=== PATIENT | male | born 1975 | race Hispanic/Latino ===

== ENCOUNTER 2016-12-12 18:13 | Emergency (ER) | payer OTHER ==
[~2016-12-12] VITALS: Ht 182.9 cm; Wt 93.0 kg
[2016-12-12 18:21] VITALS: BP 162/84
--- NOTE | 2016-12-12 18:57 | ED SKIN/ALLERGY COMPLAINT ---
History of Present Illness General Chief Complaint: Skin Rash/ Abcess Stated Complaint: RASH ON FACE SINCE SAT Source: patient Exam Limitations: no limitations Vital Signs & Intake/Output Vital Signs & Intake/Output Vital Signs Date Time Temp Pulse Resp B/P B/P Pulse O2 O2 Flow FiO2 Mean Ox Delivery Rate 12/12 1848 98 Room Air 12/12 1821 97.8 61 16 162/84 97 Room Air Allergies Coded Allergies: No Known Allergies (12/12/16) Reconcile Medications Acyclovir 800 MG TABLET 1 TAB PO 5 TIMES A DAY SHINGLES Mupirocin 2 % OINT...G. 1 ROHAN TOP TID RASH apply to affected area(s) Triage Note: PT STATES HE HAS A RASH ON HIS NOSE AND ON HIS FH. PT WENT TO WALK IN ON FRIDAY THINKING IT WAS POISON KOFI WAS GIVEN PREDNISONE AND PT STATES IT LOOKS LIKE IT GOT WORSE. PT STATES RASH IS ITCHY Triage Nurses Notes Reviewed? yes Onset: Gradual Duration: week(s): (1) Timing: no prior history Severity: moderate Location: face Possible Factors: UNSURE No Modifying Factors: none HPI: Patient is a 41-year-old male with history of chickenpox as a child presenting to the emergency department with chief complaint of rash that started 5-6 days ago on his face. He reports at that rash is itchy and he noticed some drainage from the rash. Denies being outside or exposed to poison kofi. Denies any pain. No visual changes. Saw the walk-in clinic on Friday and they thought it might be the start of poison kofi so they started him on a prednisone taper. No change in symptoms with prednisone over the past 1 week. Denies any fevers or chills nausea or vomiting chest pain or shortness of breath. (JONATHON DESOUZA) Past History Travel History Traveled to [place] past 21 day No Medical History Any Pertinent Medical History? see below for history Surgical History Surgical History: non-contributory Psychosocial History What is your primary language Peruvian Tobacco Use: Never used ETOH Use: occasional use Illicit Drug Use: denies illicit drug use Family History Hx Contributory? No (JONATHON DESOUZA) Review of Systems Review of Systems Constitutional: Reports: no symptoms. Comments Review of systems: See HPI, All other systems negative. Constitutional, no chills fever or weight loss HEENT: No visual changes no sore throat no congestion Cardiovascular: No chest pain ,palpitation Skin, no jaundice Respiratory: No dyspnea cough sputum or hemoptysis GI: No nausea no vomiting : No dysuria No hematuria Muscle skeletal: no back pain, no neck pain, Neurologic: No numbness no confusion Psych: No stress anxiety Immunology: No splenectomy or history of AIDS (JONATHON DESOUZA) Physical Exam Physical Exam General Appearance: well developed/nourished, no apparent distress, alert, comfortable Comments: Well-developed well-nourished person in no acute distress HEENT: Pupils equally round and reactive to light and accommodation. Nose is atraumatic. Neck: Supple, no lymphadenopathy, normal range of motion without pain or tenderness. no oral lesions noted. EYE: Fluorescein stain does not reveal any uptake. Conjunctiva are nonerythematous. Back: Nontender Cardiovascular: Regular rate and rhythms no murmurs rubs or gallops, normal JVP Respiratory: Chest nontender. No respiratory distress.breath sounds clear to auscultation bilaterally Extremity: No edema Neuro: Alert oriented x3 Skin: Vesicular rash noted on the left side of the nasal bridge extending into the eyebrow. There is another patch of vesicular lesions noted at the hairline on the superior aspect of the scalp. All lie with on the left side of the face. All within a dermatome. Psych: Mood and affect is normal, memory and judgment is normal. Diagram Head: 1) VESICULAR RASH 1 2) VESICULAR RASH 2 (JONATHON DESOUZA) Progress Differential Diagnosis: CONTACT DERMATITIS, SHINGLES, NONSPECIFIC RASH Plan of Care: Patient will continue steroids. We will start patient on antivirals. Also given mupirocin cream for questionable superimposed impetigo secondary to scratching. He has an appointment with his primary care physician on Friday. Educated on signs and symptoms to return. (JONATHON DESOUZA) Departure Departure Time of Disposition: 1910 Disposition: HOME OR SELF CARE Condition: Stable Clinical Impression Primary Impression: Herpes zoster Qualifiers: Herpes zoster complications: without complications Qualified Code: B02.9 - Zoster without complications Referrals: LOENEL GUERRERO MD (PCP/Family) Additional Instructions: FOLLOW UP WITH PCP ON FRIDAY. CONTINUE WITH PREDISONE TAPER. TAKE acyclovir as prescribed. Use topical mupirocin as prescribed. Return for worsening symptoms or concerns or if he develop any eye symptoms. Departure Forms: Customer Survey General Discharge Information Prescriptions: Current Visit Scripts Acyclovir 1 TAB PO 5 TIMES A DAY #35 TAB Mupirocin 1 ROHAN TOP TID #15 GM apply to affected area(s) (JONATHON DESOUZA) PA/ANODISER Co-Sign Statement Statement: ED Attending supervision documentation- I saw and evaluated the patient. I have also reviewed all the pertinent lab results and diagnostic results. I agree with the findings and the plan of care as documented in the PA's/ANODISER's documentation. x I have reviewed the ED Record and agree with the PA's/ANODISER's documentation. [] Additions or exceptions (if any) to the PAs/ANODISER's note and plan are summarized below: [] (QUAN GARRIDO,RHONA)
[2016-12-12] MEDS ORDERED: MUPIROCIN22 GM TOP (19:14)
[2016-12-12] MEDS ORDERED: ACYCLOVIR800 M1 PO (19:14)
== END 2016-12-12 19:18 ==
LOC: ERH 18:13
DX: B02.9 Zoster without complications (principal)